=== PATIENT | female | born 1940 | race Caucasian/White ===

== ENCOUNTER 2023-05-27 11:55 | Inpatient (IN) | payer OTHER ==
[2023-05-27] MEDS ORDERED: SODIUM CHLORIDE 0.9% 500 ML INFUS.BAG IV ONE (12:29)
[2023-05-27] MEDS ORDERED: ACETAMINOPHEN 1000 MG/100 ML BAG IVPB ONE (12:32)
[2023-05-27] MEDS ORDERED: ACETAMINOPHEN INJECTION 100 ML IVPB ONE (12:50)
[2023-05-27 13:17] LABS: BASO % 0.9 % (0-2.0); EOS % 0.1 % (0-4.5); HEMATOCRIT 33.2 % (32.4-45.2); HEMOGLOBIN 10.6 GM/dL (10.7-15.3); LYMPH % 4.1 % (8-40); MCH 25.3 pg (25.7-33.7); MCHC 31.9 g/dl (32.0-36.0); MEAN CELL VOLUME 79.5 fl (80-96); MONO % 6.2 % (3.8-10.2); NEUT % 88.7 % (42.8-82.8); PLATELET COUNT 467 10^3/uL (134-434); RBC 4.17 M/mm3 (3.60-5.2); RDW 17.2 % (11.6-15.6)
[2023-05-27 13:34] LABS: POTASSIUM 3.9 mmol/L (3.5-5.1)
[2023-05-27 13:37] LABS: ALBUMIN 2.2 g/dl (3.4-5.0); CALCIUM 11.9 mg/dL (8.5-10.1)
[2023-05-27 13:40] LABS: MAGNESIUM 2.3 mg/dL (1.8-2.4); PHOSPHOROUS 3.1 mg/dL (2.5-4.9)
[2023-05-27 13:42] LABS: BILIRUBIN,TOTAL 0.4 mg/dL (0.2-1); TOT PROT 7.1 g/dl (6.4-8.2)
[2023-05-27 14:19] LABS: BLOOD UREA NITROGEN 20.5 mg/dL (7-18); CREATININE 0.7 mg/dL (0.55-1.3)
[2023-05-27] MEDS ORDERED: SODIUM CHLORIDE 500 ML IV STA (16:36)
[2023-05-27] MEDS ORDERED: morphine SULFATE 10 MG/5 ML UNIT-DOSE CUP PO PRN (17:12)
[2023-05-27] MEDS ORDERED: morphine SULFATE 10 MG/5 ML UNIT-DOSE CUP ONE (20:11)
[2023-05-27] MEDS ORDERED: ENOXAPARIN NA (PORCINE) 40 MG/0.4 ML DISP.SYRIN SQ SCH (22:00)
[2023-05-28 04:44] VITALS: BMI 19.2
[2023-05-28 07:19] LABS: BASO % 0.3 % (0-2.0); EOS % 0.4 % (0-4.5); HEMATOCRIT 30.6 % (32.4-45.2); HEMOGLOBIN 9.4 GM/dL (10.7-15.3); LYMPH % 7.6 % (8-40); MCH 24.4 pg (25.7-33.7); MCHC 30.8 g/dl (32.0-36.0); MEAN CELL VOLUME 79.3 fl (80-96); MEAN PLT VOLUME 6.9 fl (7.5-11.1); NEUT % 83.7 % (42.8-82.8); PLATELET COUNT 423 10^3/uL (134-434); RBC 3.86 M/mm3 (3.60-5.2); RDW 16.7 % (11.6-15.6)
[2023-05-28 07:37] LABS: POTASSIUM 3.9 mmol/L (3.5-5.1)
[2023-05-28 07:54] LABS: CREATININE 0.5 mg/dL (0.55-1.3)
[2023-05-28 07:57] LABS: BILIRUBIN,TOTAL 0.3 mg/dL (0.2-1); TOT PROT 6.4 g/dl (6.4-8.2)
[2023-05-28 08:24] LABS: CALCIUM 10.5 mg/dL (8.5-10.1)
[2023-05-28 08:25] LABS: MAGNESIUM 2.2 mg/dL (1.8-2.4)
[2023-05-28 08:27] LABS: PHOSPHOROUS 3.3 mg/dL (2.5-4.9)
[2023-05-28] MEDS ORDERED: ENOXAPARIN NA (PORCINE) 40 MG/0.4 ML DISP.SYRIN SQ SCH (10:00)
[2023-05-28] MEDS ORDERED: HYDROmorphone HCl 2 MG/ML VIAL IVPUSH PRN (10:43)
[2023-05-28] MEDS: ENOXAPARIN NA (PORCINE) 60 MG/0.6 ML DISP.SYRIN SQ SCH ×2 (10:50→22:47)
[2023-05-28] MEDS: SENNOSIDES 8.8 MG/5 ML SYRUP PO SCH (10:51)
[2023-05-28] MEDS ORDERED: HYDROmorphone HCl 2 MG/ML VIAL IVPB PRN (18:44)
[2023-05-28] MEDS ORDERED: ACETAMINOPHEN 1000 MG/100 ML BAG IVPB PRN (18:45)
[2023-05-29] MEDS: ENOXAPARIN NA (PORCINE) 60 MG/0.6 ML DISP.SYRIN SQ SCH ×2 (09:26→21:34)
[2023-05-29] MEDS: SENNOSIDES 8.8 MG/5 ML SYRUP PO SCH (09:26)
[2023-05-29] MEDS ORDERED: HYDROmorphone HCl 2 MG/ML VIAL IVPUSH PRN (09:51)
[2023-05-29] MEDS: HYDROmorphone HCl 2 MG/ML VIAL IVPUSH PRN (15:26)
[2023-05-30 08:48] LABS: HEMATOCRIT 27.5 % (32.4-45.2); HEMOGLOBIN 8.6 GM/dL (10.7-15.3); MCH 25.1 pg (25.7-33.7); MCHC 31.3 g/dl (32.0-36.0); MEAN CELL VOLUME 80.2 fl (80-96); MEAN PLT VOLUME 7.5 fl (7.5-11.1); PLATELET COUNT 376 10^3/uL (134-434); RBC 3.43 M/mm3 (3.60-5.2); RDW 16.9 % (11.6-15.6); WHITE BLOOD COUNT 11.2 K/mm3 (4.0-10.0)
[2023-05-30 08:50] LABS: BLOOD UREA NITROGEN 25.3 mg/dL (7-18); CALCIUM 11.1 mg/dL (8.5-10.1); MAGNESIUM 1.9 mg/dL (1.8-2.4)
[2023-05-30 08:53] LABS: BILIRUBIN,TOTAL 0.3 mg/dL (0.2-1); CREATININE 0.5 mg/dL (0.55-1.3); PHOSPHOROUS 2.8 mg/dL (2.5-4.9); TOT PROT 6.4 g/dl (6.4-8.2)
[2023-05-30] MEDS: ENOXAPARIN NA (PORCINE) 60 MG/0.6 ML DISP.SYRIN SQ SCH ×2 (10:33→23:10)
[2023-05-30] MEDS: SENNOSIDES 8.8 MG/5 ML SYRUP PO SCH (10:35)
[2023-05-30] MEDS: HYDROmorphone HCl 2 MG/ML VIAL IVPUSH PRN (17:57)
[2023-05-31] MEDS: SENNOSIDES 8.8 MG/5 ML SYRUP PO SCH (09:18)
[2023-05-31] MEDS: ENOXAPARIN NA (PORCINE) 60 MG/0.6 ML DISP.SYRIN SQ SCH ×2 (09:18→21:25)
[2023-05-31] MEDS: HYDROmorphone HCl 2 MG/ML VIAL IVPB PRN (13:49)
[2023-06-01] MEDS: HYDROmorphone HCl 2 MG/ML VIAL IVPB PRN ×4 (02:56→21:20)
[2023-06-01] MEDS: SENNOSIDES 8.8 MG/5 ML SYRUP PO SCH (09:20)
[2023-06-01] MEDS: ENOXAPARIN NA (PORCINE) 60 MG/0.6 ML DISP.SYRIN SQ SCH ×2 (09:20→21:20)
[2023-06-01] MEDS: ACETAMINOPHEN 500 MG TABLET (FP) PO SCH ×3 (10:06→21:20)
[2023-06-02] MEDS: ACETAMINOPHEN 500 MG TABLET (FP) PO SCH ×3 (05:41→21:28)
[2023-06-02] MEDS: ENOXAPARIN NA (PORCINE) 60 MG/0.6 ML DISP.SYRIN SQ SCH ×2 (09:13→21:29)
[2023-06-02] MEDS: HYDROmorphone HCl 2 MG/ML VIAL IVPB PRN ×2 (09:13→21:29)
[2023-06-02] MEDS: SENNOSIDES 8.8 MG/5 ML SYRUP PO SCH (09:13)
[2023-06-02 15:13] VITALS: RESP 18
[2023-06-02] MEDS ORDERED: DEXTROSE 50%-WATER - 25 GM/50 ML VIAL IVPUSH ONE (17:58)
[2023-06-02] MEDS ORDERED: SODIUM CHLORIDE 250 ML IV STA (18:19)
[2023-06-03] MEDS: ACETAMINOPHEN 500 MG TABLET (FP) PO SCH ×3 (05:45→21:26)
[2023-06-03] MEDS: HYDROmorphone HCl 2 MG/ML VIAL IVPB PRN ×2 (05:49→14:40)
[2023-06-03] MEDS: ENOXAPARIN NA (PORCINE) 60 MG/0.6 ML DISP.SYRIN SQ SCH ×3 (09:21→21:26)
[2023-06-03] MEDS: SENNOSIDES 8.8 MG/5 ML SYRUP PO SCH ×2 (09:22→09:24)
[2023-06-03 10:36] LABS: POTASSIUM 4.6 mmol/L (3.5-5.1)
[2023-06-03 10:38] LABS: CALCIUM 10.6 mg/dL (8.5-10.1)
[2023-06-03 10:39] LABS: BLOOD UREA NITROGEN 29.2 mg/dL (7-18)
[2023-06-03 10:42] LABS: CREATININE 0.5 mg/dL (0.55-1.3)
[2023-06-03 10:45] LABS: HEMATOCRIT 26.8 % (32.4-45.2); HEMOGLOBIN 8.4 GM/dL (10.7-15.3); MCH 25.5 pg (25.7-33.7); MCHC 31.5 g/dl (32.0-36.0); MEAN PLT VOLUME 7.2 fl (7.5-11.1); PLATELET COUNT 429 10^3/uL (134-434); RDW 16.9 % (11.6-15.6); WHITE BLOOD COUNT 9.4 K/mm3 (4.0-10.0)
[2023-06-04 00:47] VITALS: BP 98/57; PULSE 81; TEMP 98.1
== END 2023-06-04 00:40 | DRG 176 ==
LOC: JER 11:55 → JERBED 15:24 → J4W 22:33 → J5S 05-30 18:21
PROVIDERS: ADMIT Internal Medicine
DX: I26.99 Other pulmonary embolism without acute cor pulmonale (principal); I24.89 Other forms of acute ischemic heart disease; E87.1 Hypo-osmolality and hyponatremia; C7B.8 Other secondary neuroendocrine tumors; R63.4 Abnormal weight loss; I10 Essential (primary) hypertension; R13.10 Dysphagia, unspecified; R79.89 Other specified abnormal findings of blood chemistry; Z85.118 Personal history of other malignant neoplasm of bronchus and lung
CPT/HCPCS: 0241U-QW; 36415; 71045-TC-FY; 71275-TC; 80048; 80053; 82962; 83735; 83880; 84100; 84484; 85025; 85027; 93005; 93010; 93306-TC; 97163-GP; 99291; E0186; Q9967